=== PATIENT | male | born 1965 | race Caucasian/White ===

== ENCOUNTER 2022-08-17 10:50 | Emergency (ER) | payer MEDICARE, OTHER, SELFPAY ==
[2022-08-17 11:11] VITALS: BP 190/115; PULSE 63; RESP 18; TEMP 36.9; O2SAT 97; BMI 38.7
--- NOTE | 2022-08-17 11:57 | ED.CHESTPAIN ---
HPI - Chest Pain General Chief Complaint: Chest Pain Stated Complaint: chest pain LT arm numbness Time Seen by Provider: 08/17/22 11:14 History of Present Illness HPI narrative: 57-year-old man presenting to the emergency department with concern of left-sided chest pressure and some left arm numbness. He has not been hyperventilating. Was at rest somewhere between 3-4 hours ago when noticed subtle sensation of this pressure or maybe pain and it has increased since then. Now he says he is feeling pretty good with minimal symptoms. He says at 1 point ?I do not know it could be anxiety?. Apparently 1st episode like this was about a month ago. Did follow up in primary care was noticed to have high blood pressure. Sounds like was initiated on 20 mg of lisinopril. He does seem to describe having a coronary CT as well. He says his renal function is good. Family history where his father had an early heart attack. No dysrhythmias. No personal history of feeling palpitation or arrhythmia. Tachycardia. Discussing further of potential stressors. He tears up talking about his daughter who is drinking too much. He keeps waiting for ?the call?. He thinks that might be a big part of this. Discomfort is not pleuritic. He is not having any focal weakness. Not describing lightheadedness. No cough or cold symptoms preceding. Denies GERD/reflux symptoms. No treatments attempted here Related Data Home Medications Medication Instructions Recorded Confirmed ibuprofen 200 mg tablet 800 mg PO Q6H PRN 06/10/22 06/10/22 Allergies Allergy/AdvReac Type Severity Reaction Status Date / Time No Known Drug Allergies Allergy Verified 06/10/22 16:25 Review of Systems Status of ROS Reports: 6 or more systems reviewed and unremarkable except as noted in History and below [facility] Medical History Low back pain Neck injury Rupture of colon Surgical History H/O hernia repair History of carpal tunnel surgery of left wrist History of carpal tunnel surgery of right wrist History of total right knee replacement (~2017) Social History Narrative: former smoker and chewing tobacco user Smoking Status: Former smoker What tobacco products do you use: cigarettes Smoking quit date/years: <= 15 years ago Do you use any of these nicotine containing products: None Second hand tobacco smoke exposure: No How often do you have a drink containing alcohol: never AUDIT-C Alcohol total score: 0 Non-prescribed substance use: denies use Exam Narrative Exam Narrative: Pleasant. Large man. 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 Cranial nerves 2-12 to be intact. Becomes little tearful as noted above otherwise in no distress. Breathing easily. Lungs appear to be clear. Pain/discomfort is not reproducible over the anterior chest or back. Full strength throughout. Trace edema at the sock line otherwise no noted edema. Heart with regular rate and rhythm. Distant but no murmur rub or gallop identified. He has a large chest. Abdomen is overweight soft and nontender. Const Vital Signs, click to edit/add: Vital Signs - 24 hr 08/17/22 11:11 Temperature 98.5 F Pulse Rate [Right Pulse Oximeter] 63 Respiratory Rate 18 Blood Pressure [Left Upper Arm] 190/115 H Pulse Oximetry 97 Oxygen Delivery Method Room Air Documenting provider has reviewed patient's vital signs: yes Course Vital Signs Vital signs: Initial Vital Signs Temperature 98.5 F 08/17/22 11:11 Temperature Source Temporal Artery Scan 08/17/22 11:11 Pulse Rate 63 08/17/22 11:11 Respiratory Rate 18 08/17/22 11:11 Blood Pressure 190/115 H 08/17/22 11:11 Blood Pressure Mean 140 08/17/22 11:11 Blood Pressure Position Sitting 08/17/22 11:11 Pulse Oximetry 97 08/17/22 11:11 Oxygen Delivery Method 08/17/22 11:11 Vital Signs Temperature 98.5 F 08/17/22 11:11 Pulse Rate 63 08/17/22 11:11 Respiratory Rate 18 08/17/22 11:11 Blood Pressure 190/115 H 08/17/22 11:11 Pulse Oximetry 97 08/17/22 11:11 Oxygen Delivery Method 08/17/22 11:11 Temperature 98.5 F 08/17/22 11:11 Pulse Rate 63 08/17/22 11:11 Respiratory Rate 18 08/17/22 11:11 Blood Pressure 190/115 H 08/17/22 11:11 Pulse Oximetry 97 08/17/22 11:11 Oxygen Delivery Method 08/17/22 11:11 MDM - Chest Pain MDM Narrative Medical decision making narrative: Results of this coronary CT are not available to me at this time but ischemic cardiac disease certainly is in differential. Otherwise pulmonary embolus. Does not seem to be infectious etiology. Vascular disruption as well I suppose. GERD. Exacerbation of anxiety. Tachyarrhythmia. I did inquire whether not he would like anything for his nerves and he says he is feeling pretty well now. Will be watched on environmental monitoring technician. Initial EKG reviewed by me shows sinus bradycardia 54. Without ischemic changes. Cardiac labs are pending at around 4 hours into event. Labs as below. Reassuring No events on monitor. It appears that may need addition of another agent for blood pressure management. Would consider hydrochlorothiazide but with underlying history of Meniere's perhaps chlorthalidone? Did present here however with rather elevated systolic and diastolic where calcium channel gal might be particularly effective. See patient discharge plan Medical Records Data Attestation: I reviewed the patient's medical records. Lab Data Attestation: I reviewed the patient's lab results. Labs: Lab Results 08/17/22 08/17/22 08/17/22 Range/Units 11:38 11:38 11:38 D-Dimer Quant (PE/DVT) < 0.27 (0.00-0.50) ug/ml Troponin I < 0.01 L (0.01-0.04) ng/mL NT-Pro-B Natriuret Pep < 20 pg/mL POC Troponin I 0.00 L (0.01-0.04) ng/ml Discharge Plan Discharge Clinical Impression: Other social stressor, Atypical chest pain Patient Disposition: Home w/ Parent or Adult Condition: Improved Additional Instructions: I think it is okay to slow down a little bit. Otherwise try to get in little heart pumping exercise daily. I think it will help your mind/emotions. Continue to check daily or every other day, blood pressures after period of rest. Take those readings after a week or two, into your primary care provider to follow up regarding high blood pressure. Might also use that visit as an opportunity to talk about agitation/anxiety/social stress. Might help to review what more needs to be done for evaluation of your heart given current recommendations; sounds like you are being considered appropriately. We were talking about the ringing in your ears: one of the medications we were discussing that might be good for your blood pressure, might make your tinnitus worse. Otherwise feel free to return to the emergency department with persistent recurrence of chest pain or pressure particularly if accompanied by sense of nausea, lightheadedness, sweatiness, shortness of breath. Yes deep breathing, focused breathing might be helpful to alleviate an episode, but I admit that it can be very difficult to distinguish between heart attack and a exacerbation of anxiety. Activity Level: No Restrictions Discharge Diet: Regular Prescriptions: No Action ibuprofen 200 mg tablet 800 mg PO Q6H PRN Follow Up/Referrals: Provider,Not a Local [Primary Care Provider] - Stand Alone Forms: [employer] Info Instructions
[2022-08-17 12:11] LABS: D Dimer Quantitative* < 0.27 ug/ml (0.00-0.50)
[2022-08-17 12:17] LABS: NT Pro B Type NatriureticPept* < 20 pg/mL; Troponin I* < 0.01 ng/mL (0.01-0.04)
== END 2022-08-17 13:15 | disposition home or self-care (01) ==
PROVIDERS: Emergency Provider Family Medicine
DX: R07.89 Other chest pain (principal); F43.9 Reaction to severe stress, unspecified
CPT/HCPCS: 36415; 83880; 84484; 85379; 93005; 99284

== ENCOUNTER 2024-02-01 15:45 | Outpatient (RCR) | payer MEDICARE, OTHER, SELFPAY | END 2024-03-27 09:26 | disposition home or self-care (01) | PROVIDERS: PCP Family Medicine; Visit Provider Physician Assistant Surgical | DX: M17.0 Bilateral primary osteoarthritis of knee (principal); M19.011 Primary osteoarthritis, right shoulder; Z74.09 Other reduced mobility; M25.511 Pain in right shoulder; M25.562 Pain in left knee; M25.561 Pain in right knee; M62.89 Other specified disorders of muscle; Z51.89 Encounter for other specified aftercare | CPT/HCPCS: 97110; 97161 ==

== ENCOUNTER 2024-06-30 21:41 | Emergency (ER) | payer MEDICARE, OTHER, SELFPAY ==
--- OUTSIDE RECORDS SUMMARY | 2024-06-30 21:44 | XMS_ITS | Clinical Summary ---
Author Organization [facility] Address [place], [place] [address] Care Team Providers Care [employer] Science Teacher Name Role Phone Bridgett Matthew DO Primary Care Provider [phone] Allergies Active Allergy Reactions Criticality Noted Date Comments Hydromorphone Other - Describe In Comment Field 02/16/2008 Agitation Medications polyethylene glycoL (MIRALAX) 17 gram/scoop powderIndications:Chron ic constipation Mix 1 scoop (17 g) in liquid then take by mouth once daily if needed for Constipation . 507 g 07/07/19 23 Active hydrocortisone 2.5% creamIndications:Anal itching Apply topically to affected area(s) two times daily. 30 g 07/07/19 23 Active LORazepam (ATIVAN) 0.5 mg tab Take 0.5 mg by mouth every 6 hours if needed for Anxiety. 11/10/19 23 Active hydroCHLOROthiazide 25 mg tabletIndications:Prima ry hypertension Take 1 Tablet (25 mg) by mouth once daily. 90 Tablet 3 11/15/19 24 Active atorvastatin (LIPITOR) 20 mg tabletIndications:Pure hypercholesterolemia TAKE ONE TABLET BY MOUTH AT BEDTIME 90 Tablet 2 01/02/20 24 Active sertraline (ZOLOFT) 50 mg tabletIndications:Gener alized anxiety disorder TAKE ONE AND ONE-HALF TABLETS BY MOUTH EVERY MORNING 135 Tablet 1 01/19/20 24 Active diclofenac topical (VOLTAREN) 1 % gelIndications:Bilatera l wrist pain,Chronic pain of right thumb Apply 2 g topically to affected area(s) four times daily. 150 g 3 01/25/20 24 Active losartan (COZAAR) 50 mg tabletIndications:Prima ry hypertension Take 1 Tablet (50 mg) by mouth once daily. 90 Tablet 3 02/22/20 24 Active Active Problems Problem Noted Date Diagnosed Date Arthritis of carpometacarpal (CMC) joint of righ t thumb 02/25/2024 Arthritis of left wrist 02/25/2024 History of small bowel obstruction 07/07/2022 Chronic constipation 07/07/2022 Diverticulosis 07/07/2022 Overview (05/07/2023): Colonoscopy 04/2023 diverticulosis, repeat in 10 years Morbid obesity 07/07/2022 BPH (benign prostatic hyperplasia) 10/18/2017 Depression 10/18/2017 Primary osteoarthritis of right knee 10/14/2017 Immunizations Name Administration Dates Next Due Influenza, IIV4 07/24/2016 Td, Preservative Free (age >= 7 Years) 0 Tdap 06/13/2013 Family History Medical History Relation Name Comments Diabetes Brother 1 Trevor Stroke Brother 1 Trevor Affected vision Unknown Brother 2 Anderson Other Brother 3 Rob Back pain - dis abled from Heart attack Father Hypertension Father Lung cancer Father Smoker Cancer-breast Mother Unknown Sister 1 Pham Cancer-breast Sister 2 Kinjal Depression Sister 2 Kinjal Diabetes Sister 3 Pat Diabetes Sister 4 Edith Relation Name Status Comments Brother 1 Trevor Alive Brother 2 Anderson Alive Brother 3 Rob Alive Daughter 1 Alive Daughter 2 Alive Daughter 3 Alive Daughter 4 Alive Father Mother Sister 1 Pham Alive Sister 2 Kinjal Sister 3 Pat Sister 4 Edith Alive Social History Tobacco Use Types Packs/Day Years Used Date Smoking Tobacco: Former Smokeless Tobacco: Former Chew Quit: 06/2019 Tobacco Cessation:Counseling Given: Yes Alcohol Use Standard Drinks/Week Comments No 0 (1 standard drink = 0.6 oz pur e alcohol) PHQ-2 Answer Date Recorded PHQ-2 TOTAL SCORE 2 01/25/2024 Social Connections Answer Date Recorded Frequency of Communication with Friends and Fami ly Not on file 02/20/2024 Financial Resource Strain Answer Date R ecorded Difficulty of Paying Living Expenses 3 02/09/2023 Difficulty of Paying Living Expenses Not on file 02/09/2023 Food Insecurity Answer Date Recorded Worried About Running Out of Food in the Last Ye ar 1 02/09/2023 Transportation Needs Answer Date Record ed Lack of Transportation (Medical) 1 02/09/2023 Housing Stability Answer Date Recorded Unable to Pay for Housing in the Last Year 1 02/09/2023 Sex and Gender Information Value Date Recorded Sex Assigned at Not on file Legal Sex Male 6:45 AM BIBLICAL LANGUAGES PROFESSOR Gender Identity Not on file Sexual Orientation Not on file Obstetrics History Last Filed Vital Signs Vital Sign Reading Time Taken Comments Blood Pressure 142/89 01/25/2024 10:38 AM CDT Pulse 57 01/25/2024 10:38 AM CDT Temperature 36.8 C (98.2 F) 07/13/2022 2:21 PM BIBLICAL LANGUAGES PROFESSOR Respiratory Rate 14 05/04/2023 12:15 PM BIBLICAL LANGUAGES PROFESSOR Oxygen Saturation 97% 01/25/2024 10:38 AM CDT Inhaled Oxygen Concentration - - Weight 125.9 kg (277 lb 8 oz) 01/25/2024 10:38 A M CDT Height 182.9 cm (6') 07/13/2022 2:19 PM BIBLICAL LANGUAGES PROFESSOR Body Mass Index 37.64 07/13/2022 2:19 PM BIBLICAL LANGUAGES PROFESSOR Plan of Treatment Health Maintenance Due Date Last Done Comments Pneumococcal series for age 50+ (1 of 1 - PCV) 2013 Zoster (shingles) series for age 50+ (1 of 2) 2013 RSV vaccine for adults or (1 - Risk 60-74 years 1-dose series) 2023 BMI (ht and wt on same day) for age 18+ 07/07/2023 07/07/2022 COVID-19 vaccine series ( - season) 2024 Influenza for age 50-64 02/06/2024 07/24/2016 Depression screening for age 12+ 01/24/2025 01/25/2024, 02/09/2023, 12/22/2022, Additional history exists Lipids for age 45-75 10/08/2027 10/07/2022, 07/07/19 23 Tetanus booster 03/01/2030 03/01/2020, 06/13/2013 Colonoscopy through age 75 05/04/203305/04, 05/04/2023, 05/04/2023 Tdap Completed 06/13/2013 HIV for age 15-65 Completed 07/07/2022 Hepatitis C screening for ag e 18-79 Completed 07/07/2022 Medical Devices Implanted Type Area Bag Presser Device Identifier Shelf Expiration Date Model / Serial / Lot Bone Cement Implanted:Qty: 1 on 10/18/2017 by Herson Hurst MD at [facility] Right: Knee [employer] 01/05/2020 / / [id number] Femoral Implanted:Qty: 1 on 10/18/2017 by Herson Hurst MD at [facility] Right: Knee [employer] 05/06/2027 / / [id number] Tibial Base Implanted:Qty: 1 on 10/18/2017 by Herson Hurst MD at [facility] Right: Knee [employer] 04/06/2027 / / [id number] Patella Implanted:Qty: 1 on 10/18/2017 by Herson Hurst MD at [facility] Right: Knee [employer] 07/07/2022 / / [id number] Tibial Insert Implanted:Qty: 1 on 10/18/2017 by Herson Hurst MD at [facility] Right: Knee [employer] 04/06/2022 / / [id number] Procedures Procedure Name Priority Date/Time Associated Diagnosis Comments COLONOSCOPY SCREENING Routine 05/04/2023 10:22 AM BIBLICAL LANGUAGES PROFESSOR Screening for colon cancer LIPID PANEL W REFLEX MEASURED LDL Routine 10/07/2022 8:13 AM CDT Pure hypercholesterolemia LC HIV-1/O/2, 4TH GENERATION Routine 07/07/2022 9:28 AM BIBLICAL LANGUAGES PROFESSOR Screening for HIV (human immunodeficiency virus) LC HCV ANTIBODY RFX TO QUANT PCR Routine 07/07/2022 9:28 AM BIBLICAL LANGUAGES PROFESSOR Need for hepatitis C screening test from Last 3 Months or Most Recently Relevant to Health Maintenance Results * COLONOSCOPY (05/04/2023 10:42 AM BIBLICAL LANGUAGES PROFESSOR) 05/04/2023 10:4 2 AM BIBLICAL LANGUAGES PROFESSOR Narrative Transcriptions Cleveland Neal MD - 05/04/2023 12:01 PM CST Patient Name: Herson Francois Procedure Date: 05/04/2023 Gender: Male Date of : 1965 Admit Type: Outpatient Procedure: Colonoscopy Proceduralist: Cleveland Neal MD , Taylor Templeton RN(Nurse), Nikia Dale (Nurse) Referring MD: Bridgett Matthew Indications/Pre-Op Diagnosis: Screening for colorectal malignant neoplasm, Last colonoscopy: date unknown (unable to locate last colonoscopy report), Incidental diarrhea noted Medications: Fentanyl 100 micrograms IV, Midazolam 4 mgIV, The level of sedation administered wasmoderate Procedure Description: The patient had risks, benefits and alternatives explained to andgave informed consent. The patient had a stable cardiopulmonary status and judged an adequate candidate for conscious sedation. The endoscope [id number] was passed through the anus andadvanced to the cecum, identified by appendiceal orifice and ileocecal valve.The colonoscopy was performed without difficulty. The patient toleratedthe procedure well. The quality of the bowel preparation was good. The ileocecal valve, appendiceal orifice, and rectum were photographed. Complications: No immediate complications. Estimated Blood Loss & Specimen: Estimated blood loss: none. Specimen collected - Yes and sent to Laboratory Findings: The perianal and digital rectal examinations were normal. A few small-mouthed diverticula were found in the sigmoid colon. There was evidence of a prior end-to-end colo-colonic anastomosis inthe sigmoid colon. This was patent and was characterized by healthy appearing mucosa. The exam was otherwise without abnormality. Biopsies for histology were taken with a cold forceps from the entire colon for evaluation of microscopic colitis. Impressions/Post-Op Diagnosis: - Diverticulosis in the sigmoid colon. - Patent end-to-end colo-colonic anastomosis, characterized byhealthy appearing mucosa. - The examination was otherwise normal. - Biopsies were taken with a cold forceps from the entire colon for evaluation of microscopic colitis. Recommendation: - Patient has a contact number available for emergencies. The signsand symptoms of potential delayed complications were discussed with the patient. Return to normal activities tomorrow. Written discharge instructions were provided to the patient. - Resume previous diet. - Continue present medications. - Repeat colonoscopy in 10 years for screening purposes. Moderate Sedation: A time out was performed before the procedure. Moderate (conscious) sedation was administered by the endoscopy nurse and supervised bythe endoscopist. The following parameters were monitored: oxygensaturation, heart rate, blood pressure, EKG, CO2, respiratory rate, adequacy of pulmonary ventilation and reponse to care. Please refer to the patient's medical record flowsheets and nursing notes for moderate sedation details. Total physician intraservice time was 14 minutes. Cleveland Neal MD 05/04/2023 12:01:06 PM This report has been signed electronically. Note Initiated On: 05/04/2023 10:42 AM Procedure Code(s): --- Professional --- 82338, Colonoscopy, flexible; with biopsy, single or multiple Diagnosis Code(s): --- Professional --- Z12.11, Encounter for screening formalignant neoplasm of colon Z98.0, Intestinal bypass and anastomosisstatus K57.30, Diverticulosis of large intestine without perforation or abscess withoutbleeding CPT copyright 2021 [employer]. All rights reserved. The codes documented in this report are preliminary and upon agricultural adviser reviewmay be revised to meet current compliance requirements. Scope In: 11:41:31 AM Scope Withdrawal Time 0 hours 9 minutes 19 seconds Scope Out: 11:53:06 AM us Cleveland Neal MD PROCEDURE ORD Final Res ult * (ABNORMAL) LIPID PANEL W REFLEX MEASURED LDL (10/07/2022 8:13 AM CDT) CHOLESTEROL,TOTAL 106 mg/dL 023 3:29 PM CDT [facility] Comment: Cholesterol, Total Reference Ranges Desirable <200 mg/dL Borderline 200-239 mg/dL High >=240 mg/dL TRIGLYCERIDES 50 <150 mg/dL 10/07/2022 3:29 PM CDT [facility] HDL CHOLESTEROL 37(L) >40 mg/dL 3:29 PM CDT [facility] NON-HDL CHOLESTEROL 69 <145 mg/dl 10/07/2022 3:29 PM CDT [facility] CHOL/HDL RATIO 2.86 <4.50 10/07/2022 3:29 PM CDT [facility] LDL CHOLESTEROL 59 <=130 mg/dL 10/07/2022 3:29 PM T [facility] VLDL CHOLESTEROL 10(L) >30 mg/dL 10/08/19 3:29 PM T [facility] PROVIDER ORDERED STATUS RANDOM 10/07/2022 3:29 PM T [facility] Blood BLOOD SPECIMEN / Unknown Venipuncture / Unknown 10/07/2022 8:13 AM CDT 10/07/2022 8:14 AM CDT us Bridegtt Matthew DO CHEMISTRY Final Result [facility] [address] [place] [address], [place] * LC HCV ANTIBODY RFX TO QUANT PCR (07/07/2022 9:28 AM BIBLICAL LANGUAGES PROFESSOR) HCV Ab 0.1 0.0 - 0.9 s/co ratio 07/09/2022 10:07 PM BIBLICAL LANGUAGES PROFESSOR [facility] Blood BLOOD SPECIMEN / Unknown Venipuncture / Unknown 07/07/2022 9:28 AM BIBLICAL LANGUAGES PROFESSOR 07/07/2022 9:36 AM BIBLICAL LANGUAGES PROFESSOR Narrative [facility] - 07/09/2022 10:07 PM BIBLICAL LANGUAGES PROFESSOR Performed at: [address] [place] [id number] Substation Engineer: Nabil De Jesus MD, Phone: [phone] Bridgett Matthew DO LABORATORY Final Result Performing Organization Address City/[facility]/ZIP Co de Phone Number [facility] ([facility]) [address] [place] [address] * HIV-1/O/2, 4TH GENERATION (07/07/2022 9:28 AM BIBLICAL LANGUAGES PROFESSOR) [facility] HIV Scr 4th Gen Non Reactive Non Reactive 07/09/2022 10:07 PM BIBLICAL LANGUAGES PROFESSOR [facility] ([facility]) Comment: HIV Negative HIV-1/HIV-2 antibodies and HIV-1 p24 antigen were NOT detected. There is no laboratory evidence of HIV infection. Blood BLOOD SPECIMEN / Unknown Venipuncture / Unknown 07/07/2022 9:28 AM BIBLICAL LANGUAGES PROFESSOR 07/07/2022 9:36 AM BIBLICAL LANGUAGES PROFESSOR Narrative [facility] ([facility] - 07/09/2022 10:07 PM BIBLICAL LANGUAGES PROFESSOR Performed at: [address] [place] [address] [id number] Substation Engineer: Nabil De Jesus MD, Phone: [phone] Bridgett iGljose LABORATORY Final Result Performing Organization Address [facility] Co de Phone Number [facility] ([facility]) [address] [place] [address] from Last 3 Months or Most Recently Relevant to Health Maintenance Insurance RINKU JEFFERSON [id number] MEDICARE PB ONLY MEDICARE PART B HB ONLY MEDICARE PART A HB ONLY WORKERS COMP on file Advance Directives * Full Code (Latest Code Status on File) Date Activated Date Inactivated Comments 10/18/2017 10:11 AM 10/21/2017 3:01 PM * Full Code Date Activated Date Inactivated Comments 10/18/2017 5:31 AM 10/18/2017 10:10 AM Care Teams [employer] Science Teacher Relationship Specialty Start Date End Date Bridgett Matthew [place] [address] PCP - General Family Practice 10/27/22
[2024-06-30 21:47] VITALS: BP 148/86; PULSE 73; RESP 18; TEMP 36.4; O2SAT 99; BMI 37.7
--- NOTE | 2024-06-30 22:08 | ED.GENADULT ---
HPI - General Adult General Chief complaint: Cough Stated complaint: cough, nausea/vomiting Time Seen by Provider: 06/30/24 22:08 History of Present Illness HPI narrative: CC: Cough, Nausea/Vomiting pt. with symptoms for last 3 days. denies fevers. 59-year-old man presenting to the emergency department concern of cough and vomiting and diarrhea. Has been terribly achy without measured fever over the last 3 days. I believe daughter who accompanies here says that she and her fiance have also been sick with similar. At this point Mr. Davis feels he is dehydrated when discussing options he would appreciate IV hydration of possible. Does not sound as though his coughing is leading to posttussive emesis. Is having some abdominal pain. This began though sometime after the vomiting. Does not note hematemesis or hematochezia. Related Data Home Medications ?Medication ?Instructions ?Recorded ?Confirmed atorvastatin 20 mg tablet 20 mg PO DAILY 01/11/24 06/30/24 hydrochlorothiazide 25 mg tablet 25 mg PO DAILY 01/11/24 06/30/24 sertraline 50 mg tablet 50 mg PO Q24H 01/11/24 06/30/24 losartan 50 mg tablet 50 mg PO DAILY 06/30/24 06/30/24 Allergies Allergy/AdvReac Type Severity Reaction Status Date / Time No Known Drug Allergies Allergy Verified 06/30/24 21:50 Review of Systems Status of ROS: Reports: 6 or more systems reviewed and unremarkable except as noted in History and below [facility] Medical History Neck injury ?S19.9XXA - Unspecified injury of neck, initial encounter (ICD-10) Low back pain ?M54.50 - Low back pain, unspecified (ICD-10) Rupture of colon ?K63.1 - Perforation of intestine (nontraumatic) (ICD-10) Surgical History History of carpal tunnel surgery of left wrist ?Z98.890 - Other specified postprocedural states (ICD-10) History of carpal tunnel surgery of right wrist ?Z98.890 - Other specified postprocedural states (ICD-10) H/O hernia repair ?Z98.890 - Other specified postprocedural states (ICD-10) ?Z87.19 - Personal history of other diseases of the digestive system (ICD-10) History of total right knee replacement (~2017) ?Z96.651 - Presence of right artificial knee joint (ICD-10) Social History Narrative: former smoker and chewing tobacco user Smoking Status: Former smoker What tobacco products do you use: cigarettes Smoking quit date/years: <= 15 years ago Do you use any of these nicotine containing products: None Second hand tobacco smoke exposure: No How often do you have a drink containing alcohol: never AUDIT-C Alcohol total score: 0 Non-prescribed substance use: denies use Exam Narrative: Exam Narrative: Pleasant. Voice sounds little rough. Small cobblestoning in the oropharynx. Little sticky. Intermittent small cough. Lungs are clear. Heart in regular rate and rhythm. Distant. Abdomen diffusely mildly tender. No lower extremity edema. Is well-perfused. Const: Vital Signs, click to edit/add: Vital Signs - 24 hr 06/30/24 21:47 Temperature 97.6 F Pulse Rate [Right Pulse Oximeter] 73 Respiratory Rate 18 Blood Pressure [Ri ght Upper Arm] 148/86 H Pulse Oximetry 99 Oxygen Delivery Me thod Room Air Documenting provider has reviewed patient's vital signs: yes Course Vital Signs Vital signs: Initial Vital Signs Temperature 97.6 F 06/30/24 21:47 Temperature Source Temporal Artery Scan 06/30/24 21:47 Pulse Rate 73 06/30/24 21:47 Respiratory Rate 18 06/30/24 21:47 Respiratory Effort Normal, Spontaneous, Non-Labored 06/30/24 21:47 Respiratory Depth Normal 06/30/24 21:47 Respiratory Pattern Normal 06/30/24 21:47 Blood Pressure 148/86 H 06/30/24 21:47 Blood Pressure Mean 106 H 06/30/24 21:47 Blood Pressure Position Sitting 06/30/24 21:47 Pulse Oximetry 99 06/30/24 21:47 Oxygen Delivery Method Room Air 06/30/24 21:47 Vital Signs Temperature 97.6 F 06/30/24 21:47 Pulse Rate 73 06/30/24 21:47 Respiratory Rate 18 06/30/24 21:47 Blood Pressure 148/86 H 06/30/24 21:47 Pulse Oximetry 99 06/30/24 21:47 Oxygen Delivery Method Room Air 06/30/24 21:47 Temperature 97.6 F 06/30/24 23:37 Pulse Rate 78 06/30/24 23:37 Respiratory Rate 18 06/30/24 23:37 Blood Pressure 135/74 06/30/24 23:37 Pulse Oximetry 99 06/30/24 23:35 Oxygen Delivery Method Room Air 06/30/24 23:35 Medications Administered Medications: Discontinued Medications Generic Name Dose Route Start Last Admin Trade Name Kalani PRN Reason Stop Dose Admin Sodium Chloride 1,000 mls @ 1,000 mls/hr 06/30/24 22:17 06/30/24 23:13 0.9 % Sodium Chloride 1000 Ml IV 06/30/24 23:16 Infused .Q1H ONE Infusion Ondansetron HCl 4 mg 06/30/24 22:17 06/30/24 22:29 Ondansetron 2 Mg/Ml Inj IVP 06/30/24 22:18 4 mg ONCE ONE Administration Medical Decision Making MDM Narrative Medical decision making narrative: I suspect influenza a considering community prevalence here. Will be screening for this as well as COVID. He would like some fluid so go ahead and initiate IV fluids and Zofran. Hopefully will feel a little bit better. Is indeed positive for influenza type A. Discussed findings and potential treatment. Does not feel markedly improved but appears stable. Discussed potential Tamiflu. I do not think would benefit much from this any more. He decides to defer. This concern in particular of his dry feeling eyes. See patient discharge plan for further discussion For your dry eyes I would consider generic eye ointment, Lacri-Lube or Refresh p.m. drops Can take up to 800 mg ibuprofen or up to 1000 mg of acetaminophen per dose Focus on hydration. Consider sleeping under the mist of a cool mist humidifier. Menthol vapors might be helpful. Prescribing Zofran from [facility] for nausea. For diarrhea if needed, as long as no blood in your stool or marked increase in abdominal pain, could try loperamide which is available [id number]. Symptoms of influenza usually last 5-7 days or so Medical Records Medical records reviewed: Yes I reviewed the patient's medical records Lab Data Lab results reviewed: Yes I reviewed the patient's lab results Labs: Lab Results 06/30/24 Range/Units 21:51 SARS-CoV-2 (PCR) Negative SARS-CoV-2 (Negative) Influenza Type A (PCR) POSITIVE PCR FLU A A (Negative) Influenza Type B (PCR) Negative PCR FLU B (Negative) RSV (PCR) Negative PCR RSV (Negative) Discharge Plan Discharge Clinical Impression: Influenza A, Dehydration Patient Disposition: Home w/ Parent or Adult Condition: Improved Additional Instructions: For your dry eyes I would consider generic eye ointment, Lacri-Lube or Refresh p.m. drops Can take up to 800 mg ibuprofen or up to 1000 mg of acetaminophen per dose Focus on hydration. Consider sleeping under the mist of a cool mist humidifier. Menthol vapors might be helpful. Prescribing Zofran from [facility] for nausea. For diarrhea if needed, as long as no blood in your stool or marked increase in abdominal pain, could try loperamide which is available [id number]. Symptoms of influenza usually last 5-7 days or so Prescriptions: No Action atorvastatin 20 mg tablet 20 mg PO DAILY hydrochlorothiazide 25 mg tablet 25 mg PO DAILY sertraline 50 mg tablet 50 mg PO Q24H Rx Instructions: TAKE ONE AND ONE-HALF TABLETS BY MOUTH EVERY MORNING losartan 50 mg tablet 50 mg PO DAILY Follow Up/Referrals: Bridgett Matthew DO [Primary Care Provider] - Stand Alone Forms: [employer] Info Instructions
[2024-06-30] MEDS: 0.9 % SODIUM CHLORIDE 1000 ml 1,000 ML IV (22:28)
[2024-06-30] MEDS: ONDANSETRON 2 MG/ML inj 4 MG IVP (22:29)
[2024-06-30 22:35] LABS: PCR FLU A POSITIVE PCR FLU A (Negative); PCR FLU B Negative PCR FLU B (Negative); PCR RSV Negative PCR RSV (Negative); SARS PCR* Negative SARS-CoV-2 (Negative)
[2024-06-30 22:45] VITALS: O2SAT 99
--- OUTSIDE RECORDS SUMMARY | 2024-06-30 23:17 | XMS_ITS | Clinical Summary ---
Author Organization [facility] Address [place], [place] [address] Care Team Providers Care Pulverizer Tender Name Role Phone Bridgett Matthew DO Primary Care Provider [phone] Allergies Active Allergy Reactions Criticality Noted Date [...] on file Legal Sex Male 6:45 AM OCCUPATIONAL REHABILITATION AIDE Gender Identity Not on file Sexual Orientation Not on file Obstetrics History Last Filed Vital Signs Vital Sign Reading Time Taken Comments Blood Pressure 142/89 01/25/2024 10:38 AM CDT Pulse 57 01/25/2024 10:38 AM CDT Temperature 36.8 C (98.2 F) 07/13/2022 2:21 PM OCCUPATIONAL REHABILITATION AIDE Respiratory Rate 14 05/04/2023 12:15 PM OCCUPATIONAL REHABILITATION AIDE Oxygen Saturation 97% 01/25/2024 10:38 AM CDT Inhaled Oxygen Concentration - - Weight 125.9 kg (277 lb 8 oz) 01/25/2024 10:38 A M CDT Height 182.9 cm (6') 07/13/2022 2:19 PM OCCUPATIONAL REHABILITATION AIDE Body Mass Index 37.64 07/13/2022 2:19 PM OCCUPATIONAL REHABILITATION AIDE Plan of Treatment Health Maintenance Due Date [...] Completed 07/07/2022 Medical Devices Implanted Type Area Event Executive Device Identifier Shelf Expiration Date Model / Serial / Lot Bone Cement Implanted:Qty: 1 on 10/18/2017 by Herson Hurst MD at [facility] Right: Knee [employer] 01/05/2020 / / [id number] Femoral Implanted:Qty: 1 on 10/18/2017 by Herson Hurst MD at [facility] Right: Knee [employer] 05/06/2027 / / [id number] Tibial Base Implanted:Qty: 1 on 10/18/2017 by Herson Hurst MD at [facility] Right: Knee [employer] 04/06/2027 / / [id number] Patella Implanted:Qty: 1 on 10/18/2017 by Herson Hurst MD at [facility] Right: Knee [employer] 07/07/2022 / / [id number] Tibial Insert Implanted:Qty: 1 on 10/18/2017 by Herson Hurst MD at [facility] Right: Knee [employer] 04/06/2022 / / [id number] Procedures Procedure Name Priority Date/Time Associated Diagnosis Comments COLONOSCOPY SCREENING Routine 05/04/2023 10:22 AM OCCUPATIONAL REHABILITATION AIDE Screening for colon cancer LIPID PANEL W REFLEX MEASURED LDL Routine 10/07/2022 8:13 AM CDT Pure hypercholesterolemia LC HIV-1/O/2, 4TH GENERATION Routine 07/07/2022 9:28 AM OCCUPATIONAL REHABILITATION AIDE Screening for HIV (human immunodeficiency virus) LC HCV ANTIBODY RFX TO QUANT PCR Routine 07/07/2022 9:28 AM OCCUPATIONAL REHABILITATION AIDE Need for hepatitis C screening test from Last 3 Months or Most Recently Relevant to Health Maintenance Results * COLONOSCOPY (05/04/2023 10:42 AM OCCUPATIONAL REHABILITATION AIDE) 05/04/2023 10:4 2 AM OCCUPATIONAL REHABILITATION AIDE Narrative Transcriptions Cleveland Neal MD - 05/04/2023 [...] adequate candidate for conscious sedation. The endoscope [id number] was passed through the anus andadvanced to [...] 10:42 AM Procedure Code(s): --- Professional --- 94980, Colonoscopy, flexible; with biopsy, single or multiple Diagnosis Code(s): --- Professional --- Z12.11, Encounter for screening formalignant neoplasm of colon Z98.0, Intestinal bypass and anastomosisstatus K57.30, Diverticulosis of large intestine without perforation or abscess withoutbleeding CPT copyright 2021 [employer]. All rights reserved. The codes documented in this report are preliminary and upon motor equipment lieutenant reviewmay be revised to meet current compliance requirements. Scope In: 11:41:31 AM Scope Withdrawal Time 0 hours 9 minutes 19 seconds Scope Out: 11:53:06 AM us Cleveland Neal MD PROCEDURE ORD Final Res ult * (ABNORMAL) LIPID PANEL W REFLEX MEASURED LDL (10/07/2022 8:13 AM CDT) CHOLESTEROL,TOTAL 106 mg/dL 023 3:29 PM CDT [facility] Comment: Cholesterol, Total Reference Ranges Desirable <200 mg/dL Borderline 200-239 mg/dL High >=240 mg/dL TRIGLYCERIDES 50 <150 mg/dL 10/07/2022 3:29 PM CDT [facility] HDL CHOLESTEROL 37(L) >40 mg/dL 3:29 PM CDT [facility] NON-HDL CHOLESTEROL 69 <145 mg/dl 10/07/2022 3:29 PM CDT [facility] CHOL/HDL RATIO 2.86 <4.50 10/07/2022 3:29 PM CDT [facility] LDL CHOLESTEROL 59 <=130 mg/dL 10/07/2022 3:29 PM T [facility] VLDL CHOLESTEROL 10(L) >30 mg/dL 10/08/19 3:29 PM T [facility] PROVIDER ORDERED STATUS RANDOM 10/07/2022 3:29 PM T [facility] Blood BLOOD SPECIMEN / Unknown Venipuncture / Unknown 10/07/2022 8:13 AM CDT 10/07/2022 8:14 AM CDT us Bridgett Matthew DO CHEMISTRY Final Result [facility] [address] [place] [address], [place] * LC HCV ANTIBODY RFX TO QUANT PCR (07/07/2022 9:28 AM OCCUPATIONAL REHABILITATION AIDE) HCV Ab 0.1 0.0 - 0.9 s/co ratio 07/09/2022 10:07 PM OCCUPATIONAL REHABILITATION AIDE [facility] Blood BLOOD SPECIMEN / Unknown Venipuncture / Unknown 07/07/2022 9:28 AM OCCUPATIONAL REHABILITATION AIDE 07/07/2022 9:36 AM OCCUPATIONAL REHABILITATION AIDE Narrative [facility] - 07/09/2022 10:07 PM OCCUPATIONAL REHABILITATION AIDE Performed at: [address] [place] [id number] Rn Angiography: Nabil De Jesus MD, Phone: [phone] Bridgett Matthew DO LABORATORY Final Result Performing Organization Address City/[facility]/ZIP Co de Phone Number [facility] ([facility]) [address] [place] [address] * HIV-1/O/2, 4TH GENERATION (07/07/2022 9:28 AM OCCUPATIONAL REHABILITATION AIDE) [facility] HIV Scr 4th Gen Non Reactive Non Reactive 07/09/2022 10:07 PM OCCUPATIONAL REHABILITATION AIDE [facility] ([facility]) Comment: HIV Negative HIV-1/HIV-2 antibodies and HIV-1 p24 antigen were NOT detected. There is no laboratory evidence of HIV infection. Blood BLOOD SPECIMEN / Unknown Venipuncture / Unknown 07/07/2022 9:28 AM OCCUPATIONAL REHABILITATION AIDE 07/07/2022 9:36 AM OCCUPATIONAL REHABILITATION AIDE Narrative [facility] - 07/09/2022 10:07 PM OCCUPATIONAL REHABILITATION AIDE Performed at: [address] [place] [id number] Rn Angiography: Nabil De Jesus MD, Phone: [phone] Bridgett Giljose LABORATORY Final Result Performing Organization Address [facility] Co de Phone Number [facility] ([facility] [address] [place] [address] from Last 3 Months or Most Recently Relevant to Health Maintenance Insurance [place] [id number] MEDICARE [place] ONLY MEDICARE PART B [place] ONLY MEDICARE PART A [place] ONLY WORKERS COMP on file Advance Directives * Full Code (Latest Code Status on File) Date Activated Date Inactivated Comments 10/18/2017 10:11 AM 10/21/2017 3:01 PM * Full Code Date Activated Date Inactivated Comments 10/18/2017 5:31 AM 10/18/2017 10:10 AM Care Teams Pulverizer Tender Relationship Specialty Start Date End Date Bridgett Matthew [place] [address] [place] [address] PCP - General Family Practice 10/27/22
[2024-06-30 23:35] VITALS: BP 135/74; PULSE 78; RESP 18; TEMP 36.4; O2SAT 99
[2024-06-30 23:37] VITALS: BP 135/74; PULSE 78; RESP 18; TEMP 36.4
== END 2024-06-30 23:37 | disposition home or self-care (01) ==
LOC: ED 23:15
PROVIDERS: Emergency Provider Family Medicine; PCP Family Medicine
DX: J10.2 Influenza due to other identified influenza virus with gastrointestinal manifestations (principal); E86.0 Dehydration
CPT/HCPCS: 87631; 94761; 96374; 99284; J2405; J7030